=== PATIENT | female | born 1995 | race Two or more races ===

== ENCOUNTER → 2020-09-05 09:53 | Outpatient (BNVA) | payer MEDICAID, SELFPAY | PROVIDERS: Visit Provider Advanced Practice Midwife | DX: Z76.89 Persons encountering health services in other specified circumstances (principal) | CPT/HCPCS: 99212 ==

== ENCOUNTER 2020-09-09 10:49 | Outpatient (REF) | payer MEDICAID, SELFPAY ==
[2020-09-09 11:29] LABS: MANUAL DIFF FLAG NO
[2020-09-09 11:41] LABS: Basophils Percent Auto 0.1 % (0-2); Eosinophils Absolute Auto 0.1 X10*3/uL (0.0-0.4); Eosinophils Percent Auto 0.4 % (0-4); Hemoglobin 10.7 g/dl (12.0-16.0); Imm Gran Abs Auto 0.09 X10*3/uL (0.00-0.03); Imm Gran Pct Auto 0.6 % (0.0-0.4); Lymphocytes Absolute Auto 2.5 X10*3/uL (1.2-4.9); Lymphocytes Percent Auto 17.6 % (20-40); Mean Corpuscular HGB Conc 33.4 g/dl (31.0-35.0); Mean Corpuscular Hemoglobin 30.7 pg (27.0-33.0); Mean Corpuscular Volume 91.7 fL (80-98); Mean Platelet Volume 9.7 fL (9.4-12.3); Monocytes Absolute Auto 0.8 X10*3/uL (0.1-1.2); Monocytes Percent Auto 5.5 % (2-11); Neutrophils Absolute Auto 10.8 X10*3/uL (2.0-8.3); Neutrophils Percent Auto 75.8 % (45-73); Platelet Count 238 X10*3/uL (160-400); Red Blood Count 3.49 X10*6/uL (4.20-5.50); Red Cell Distribution Width 12.6 % (11.0-16.0); White Blood Count 14.2 X10*3/uL (4.8-10.8)
[2020-09-09 12:10] LABS: Hepatitis B Surface Antigen Negative (Negative)
[2020-09-09 12:12] LABS: Syphilis Screen Nonreactive (Nonreactive)
[2020-09-09 12:25] LABS: HIV AB/AG Nonreactive (Nonreactive); HIV Num 1 0.16 S/CO (0.00-0.99); ~HepC Num1 0.26 S/CO (0.00-0.79); ~Hepatitis C Antibody Nonreactive (Nonreactive)
[2020-09-09 12:27] LABS: Amphetamine Screen Urine Not Detected (Not Detect); Barbiturates, Urine Not Detected (Not Detect); Benzodiazepines Screen Urine Not Detected (Not Detect); Cannabinoid Screen Urine Not Detected (Not Detect); Cocaine Screen Urine Not Detected (Not Detect); Opiate Screen Urine Not Detected (Not Detect); Phencyclidine Screen Urine Not Detected (Not Detect)
[2020-09-10 09:12] LABS: Rubella IgG Antibody 9.63 Index
== END 2020-09-09 10:50 | disposition home or self-care (01) ==
LOC: HO.LAB 10:49
PROVIDERS: PCP Family Medicine; Visit Provider Advanced Practice Midwife
DX: Z34.90 Encounter for supervision of normal pregnancy, unspecified, unspecified trimester (principal)
CPT/HCPCS: 80307; 85025; 86762; 86780; 86787; 86803; 86850; 86900; 86901; 87086; 87340; 87389

== ENCOUNTER 2020-09-10 12:43 | Outpatient (REF) | payer MEDICAID, SELFPAY ==
[2020-09-10 15:04] LABS: Glucose 1 Hour PP 50gm Dose 177 mg/dL (60-140)
[2020-09-11 12:28] LABS: BV Int Neg Control Negative (Negative); BV Int Pos Control Positive (Positive)
[2020-09-12 18:52] LABS: C. trachomatis RNA TMA NOT DETECTED (NOT DETECTED); N. gonorrhoeae RNA TMA NOT DETECTED (NOT DETECTED)
== END 2020-09-10 12:44 | disposition home or self-care (01) ==
LOC: HO.LAB 12:43
PROVIDERS: Advanced Practice Midwife; PCP Family Medicine; Visit Provider Advanced Practice Midwife
DX: O26.892 Other specified pregnancy related conditions, second trimester (principal); O99.342 Other mental disorders complicating pregnancy, second trimester; N89.8 Other specified noninflammatory disorders of vagina; F41.8 Other specified anxiety disorders; Z13.31 Encounter for screening for depression
CPT/HCPCS: 36415; 81003; 87086; 87088; 87186; 87480; 87491; 87510; 87591; 87660; 99212

== ENCOUNTER 2020-09-13 10:06 | Outpatient (REF) | payer MEDICAID, SELFPAY ==
--- NOTE | 2020-09-13 10:12 | US_ITS ---
EXAMINATION: US OBSTETRICAL CLINICAL INFORMATION: 24-year-old at the 24.1 weeks gestation Suspected anomaly COMPARISON: 07/28/2019 TECHNIQUE: Real-time transabdominal ultrasound was performed using C1-5 megahertz transducer. FINDINGS: A single, active, fetus is seen in vertex presentation. The placenta is posterior without previa, and the amniotic fluid volume is wnl. MEASUREMENTS: 1. Biparietal Diameter: 5.2 cm; 21.5 wks 2. Occipital Frontal Diameter: 6.8 cm 3. Head Circumference: 20.0 cm; 22.2 wks 4. Abdominal Circumference: 16.5 cm; 21.5 wks 5. Femur Length: 4.0 cm; 23.1 wks 6. Humerus Length: 3.8 cm; 23.3 wks 7. Tibia Length: 3.7 cm; 23.6 wks 8. Ulna Length: 3.5 cm; 23.3 wks 9. Lateral ventricle: 0.8 cm 10. Cerebellum: 2.26 cm; 22.4 wks 11. Cisterna Magna: 0.52 cm 12. Nuchal Fold: 5.0 mm 13. Heart Rate: 144 beats per minute Rt ovary: normal Lt ovary: normal Cervical length 4.1 cm on T/A. GESTATIONAL AGE: 1. Established GA: 24.1 wks 2. GA from [facility]: 22.2 wks ESTIMATED DATE OF DELIVERY: 1. Established AGUILA: 01/02/2021 2. AGUILA from [facility]: 01/15/2021 ANATOMY: The visualized anatomy includes but not limited to: 1. Cranium: Normal 2. Intracranial anatomy: cavum septum pellucidi, lateral ventricles, choroid plexus, cerebellum, posterior fossa, third and fourth ventricles. 3. face: orbits, lip/palate, profile, nasal bone 4. Heart: four-chamber view of the heart, ventricular septum, foramen ovale, pulmonary vein, left and right outflow tracts, three-vessel view, 3 vessel trachea view, aortic and ductal arches, situs.. 5. Diaphragm: Normal 6. Abdominal wall: Normal 7. Cord Insertion: Normal 8. Spine: Cervical, thoracic, lumbar, sacral. 9. Stomach: Normal size and shape 10. Right Kidney: Normal 11. Left Kidney: Normal 12. 3 vessel cord: Normal 13. Upper extremity: Open hands, fifth digit. 14. Lower extremity: Tibia, fibula, bilateral feet. 15. Bladder: Normal 16. Genitalia: Female, patient aware US/US OB /maternal detail IMPRESSION: 1. Single, living, intrauterine with appropriate biometry. 2. Normal survey DISCUSSION: The biometry is 13 days less than her stated due date. She informs me that her LMP was irregular. This is her first ultrasound in this . I recommended that we adjust her AGUILA to 01/15/2021 based on today's examination. The growth pattern should be monitored throughout the . I reviewed today's ultrasound findings. We discussed the limitations of ultrasound in diagnosing aneuploidy and other congenital abnormalities. I reviewed the differences between screening test and diagnostic test. Amniocentesis was discussed and declined. She was informed that the baseline incidence of congenital abnormalities is approximately 3-5%. Not all these conditions are diagnosable in utero. RECOMMENDATIONS: 1. Follow-up in 4 weeks for an interval growth evaluation (not scheduled). Thank you for allowing me to participate in her care. Total time 30 minutes. (3,20,7)
== END 2020-09-13 10:07 | disposition home or self-care (01) ==
LOC: HO.US 10:06
PROVIDERS: PCP Family Medicine; Visit Provider Advanced Practice Midwife
DX: O35.9XX0 Maternal care for (suspected) fetal abnormality and damage, unspecified, not applicable or unspecified (principal); Z3A.24 24 weeks gestation of pregnancy
CPT/HCPCS: 76811

== ENCOUNTER 2020-09-17 10:40 | Outpatient (REF) | payer MEDICAID, SELFPAY ==
[2020-09-17 12:09] LABS: Glucose Fasting 75 mg/dL (60-99)
[2020-09-17 13:46] LABS: Glucose 1 Hour 174 mg/dL
[2020-09-17 14:19] LABS: Glucose 2 Hour 172 mg/dL
[2020-09-17 15:04] LABS: Glucose 3 Hour 156 mg/dL
[2020-09-19 00:27] LABS: C. trachomatis RNA TMA NOT DETECTED (NOT DETECTED); N. gonorrhoeae RNA TMA NOT DETECTED (NOT DETECTED)
== END 2020-09-17 10:41 | disposition home or self-care (01) ==
LOC: HO.LAB 10:40
PROVIDERS: Advanced Practice Midwife; PCP Family Medicine; Visit Provider Advanced Practice Midwife
DX: R73.09 Other abnormal glucose (principal); R30.0 Dysuria
CPT/HCPCS: 36415; 82951; 87086; 87491; 87591

== ENCOUNTER → 2020-09-18 10:39 | Outpatient (BNVA) | payer MEDICAID, SELFPAY | PROVIDERS: Visit Provider Advanced Practice Midwife | DX: O09.899 Supervision of other high risk pregnancies, unspecified trimester (principal); O24.419 Gestational diabetes mellitus in pregnancy, unspecified control | CPT/HCPCS: 81003; 99212 ==

== ENCOUNTER → 2020-09-30 11:37 | Outpatient (BNVA) | payer MEDICAID, SELFPAY | PROVIDERS: Visit Provider Obstetrics & Gynecology | DX: O09.92 Supervision of high risk pregnancy, unspecified, second trimester (principal) | CPT/HCPCS: 81003; 99212 ==

== ENCOUNTER 2020-10-11 11:43 | Outpatient (REF) | payer MEDICAID, SELFPAY ==
--- NOTE | ~2020-10-11 | US_ITS ---
EXAMINATION: OBSTETRICAL ULTRASOUND, Follow up HISTORY: 25-year-old at 26.2 weeks of gestation Insufficient care Size date discrepancy GDM A1 COMPARISON: 09/13/2020 TECHNIQUE: Real time transabdominal imaging with color and M-mode Doppler. PRESENTATION: Vertex PLACENTA LOCATION: Posterior without previa AMNIOTIC FLUID: ANTONELLA 11.4 cm MEASUREMENTS: 1. Biparietal Diameter: 6.6 cm; 26.5 wks 2. Head Circumference: 23.94 cm; 26.1 wks 3. Abdominal Circumference: 22.3 cm; 26.6 wks 4. Femur Length: 5.0 cm; 27.1 wks 5. Heart Rate: 146 beats per minute WEIGHT: EFW: 983 grams (2 lbs 3 oz) -- 60 %. While the left cerebral ventricle measures 0.9cm, which is within normal range, it appears prominent. Intracranial anatomy is within normal limits. Four-chamber view, stomach, kidneys, urinary bladder are within normal limits. GESTATIONAL AGE: 1. Established GA: 26.2 wks 2. GA from AUA: 26.5 wks ESTIMATED DATE OF DELIVERY: 1. Established AGUILA: 01/16/2020 2. AGUILA from AUA: 01/12/2021 US/US OB follow up IMPRESSION: 1. Single active fetus is in vertex presentation 2. Size equals dates. The best AGUILA appears to be 01/15/2021 based on her ultrasound on September 13. The interval growth is appropriate since her prior exam. 3. Normal amniotic fluid index 4. Left cerebral ventricle is near the upper end of normal She was diagnosed with gestational diabetes last week. She is currently on diet. She reports that her fasting glucose values are in the 80s. She has occasional postprandial values that are as high as 150. She is still working on her GDM diet. The discussed the possibility of needing either metformin or insulin. I also discussed the increased incidence of a macrosomia as well as hypoglycemia in women whose serum glucose levels are elevated in . I reviewed the clinical significance of borderline cerebral ventriculomegaly. I reassured her that the measurement is still within normal range. However if it exceeds 1.0 cm, will be referred to [facility] for pediatric urology consultation. Majority of the babies with borderline ventriculomegaly are expected to have normal outcome. Thank you very much for this referral. A 3-week f/u has been scheduled. Total time: 30 min (7,15,8).
== END 2020-10-11 11:44 | disposition home or self-care (01) ==
LOC: HO.US 11:43
PROVIDERS: Visit Provider Advanced Practice Midwife
DX: O26.841 Uterine size-date discrepancy, first trimester (principal)
CPT/HCPCS: 76816

== ENCOUNTER 2020-10-17 12:40 | Outpatient (REF) | payer MEDICAID, SELFPAY | END 2020-10-17 12:41 | disposition home or self-care (01) | LOC: HO.LAB 12:40 | PROVIDERS: PCP Family Medicine; Referring Provider Obstetrics & Gynecology; Visit Provider Obstetrics & Gynecology | DX: O23.40 Unspecified infection of urinary tract in pregnancy, unspecified trimester (principal); O99.342 Other mental disorders complicating pregnancy, second trimester; Z3A.27 27 weeks gestation of pregnancy | CPT/HCPCS: 87086; 99212 ==

== ENCOUNTER 2020-10-21 12:18 | Outpatient (REF) | payer MEDICAID, SELFPAY ==
[2020-10-21 13:41] LABS: MANUAL DIFF FLAG NO
[2020-10-21 13:59] LABS: Basophils Percent Auto 0.2 % (0-2); Eosinophils Absolute Auto 0.1 X10*3/uL (0.0-0.4); Eosinophils Percent Auto 0.4 % (0-4); Hematocrit 31.4 % (37-47); Hemoglobin 10.7 g/dl (12.0-16.0); Imm Gran Abs Auto 0.09 X10*3/uL (0.00-0.03); Imm Gran Pct Auto 0.7 % (0.0-0.4); Lymphocytes Absolute Auto 2.5 X10*3/uL (1.2-4.9); Lymphocytes Percent Auto 18.9 % (20-40); Mean Corpuscular HGB Conc 34.1 g/dl (31.0-35.0); Mean Corpuscular Hemoglobin 31.1 pg (27.0-33.0); Mean Corpuscular Volume 91.3 fL (80-98); Mean Platelet Volume 10.4 fL (9.4-12.3); Monocytes Absolute Auto 1.1 X10*3/uL (0.1-1.2); Monocytes Percent Auto 8.2 % (2-11); Neutrophils Absolute Auto 9.6 X10*3/uL (2.0-8.3); Neutrophils Percent Auto 71.6 % (45-73); Platelet Count 274 X10*3/uL (160-400); Red Blood Count 3.44 X10*6/uL (4.20-5.50); Red Cell Distribution Width 12.5 % (11.0-16.0); White Blood Count 13.4 X10*3/uL (4.8-10.8)
[2020-10-21 14:53] LABS: Alanine Aminotransferase 69 U/L (0-31); Albumin Level 3.5 g/dL (3.5-5.0); Alkaline Phosphatase 112 U/L (39-117); Aspartate Amino Transferase 42 U/L (5-31); Bilirubin Direct < 0.2 mg/dL (0.0-0.5); Bilirubin Total 0.2 mg/dL (0.0-1.0); Total Protein 6.7 g/dL (6.5-8.0)
[2020-10-23 07:30] LABS: Syphilis Screen Nonreactive (Nonreactive)
[2020-10-25 15:42] LABS: Chendeoxycholic Acid 2.3 umol/L (< OR = 3.9); Cholic Acid 2.3 umol/L (< OR = 2.8)
== END 2020-10-21 12:19 | disposition home or self-care (01) ==
LOC: HO.LAB 12:18
PROVIDERS: PCP Family Medicine; Visit Provider Obstetrics & Gynecology
DX: O99.719 Diseases of the skin and subcutaneous tissue complicating pregnancy, unspecified trimester (principal); L29.9 Pruritus, unspecified; O99.342 Other mental disorders complicating pregnancy, second trimester; F41.8 Other specified anxiety disorders; O10.912 Unspecified pre-existing hypertension complicating pregnancy, second trimester; O26.892 Other specified pregnancy related conditions, second trimester; O24.419 Gestational diabetes mellitus in pregnancy, unspecified control; Z3A.27 27 weeks gestation of pregnancy
CPT/HCPCS: 36415; 80076; 82542; 85025; 86780; 99212

== ENCOUNTER → 2020-10-22 13:23 | Outpatient (BNVA) | payer MEDICAID, SELFPAY | PROVIDERS: PCP Family Medicine; Visit Provider Advanced Practice Midwife | DX: Z34.92 Encounter for supervision of normal pregnancy, unspecified, second trimester (principal) | CPT/HCPCS: 59025; 81003; 99212 ==

== ENCOUNTER → 2020-10-24 16:02 | Outpatient (BNVA) | payer MEDICAID, SELFPAY | PROVIDERS: PCP Family Medicine; Visit Provider Obstetrics & Gynecology | DX: O26.619 Liver and biliary tract disorders in pregnancy, unspecified trimester (principal); O24.419 Gestational diabetes mellitus in pregnancy, unspecified control; K83.1 Obstruction of bile duct | CPT/HCPCS: 99212 ==

== ENCOUNTER 2020-10-25 10:27 | Outpatient (REF) | payer MEDICAID, SELFPAY ==
--- NOTE | ~2020-10-25 | US_ITS ---
EXAMINATION: OBSTETRICAL ULTRASOUND, Follow up HISTORY: 25-year-old at 30.1 weeks of gestation Elevated LFTs Gestational diabetes Insufficient care High BMI COMPARISON: 10/11/2020 TECHNIQUE: Real time transabdominal imaging with color and M-mode Doppler. PRESENTATION: Vertex PLACENTA LOCATION: Posterior without previa AMNIOTIC FLUID: ANTONELLA 14.2 cm Biometry was not repeated since there were done on 10/11/2020. Left renal pelvis measured 0.7 cm. There is no hydroureter. This can be within normal range at this gestational age. BIOPHYSICAL PROFILE: Motion: 2 Tone: 2 Breathin Amniotic Fluid: 2 Total score: 8/8 GESTATIONAL AGE: 1. Established GA: 30.1 wks 2. GA from AUA: N/A wks ESTIMATED DATE OF DELIVERY: 1. Established AGUILA: 01/02/2021 2. AGUILA from AUA: N/A US/US OB biophysical profile IMPRESSION: 1. A single active fetus is in vertex presentation 2. BPP: 8/8 3. ANTONELLA 14.2 cm According to the patient, she was evaluated at the [facility] for elevated LFT. She was given the diagnosis of intrahepatic cholestasis of in started on ursodiol 500 mg by mouth twice a day. Reports that her pruritus is improved since starting ursodiol. She has a follow-up the scheduled. I informed her that the depending on her symptoms and progression of the condition, early delivery may be indicated. She was diagnosed with GDM. Is currently on diet. Reports that her fasting glucose this morning was in the 80s. Last night postprandial dinner was 160. That was the highest value since starting on GDM diet. She informs me that she is to meet with that diabetic a counselor about starting insulin. Currently she is scheduled for a follow-up in one week for interval growth evaluation. Thank you very much for this referral. Total time 30 minutes. The time spent was devoted to counseling the patient about the disease and diagnosis, coordinating care including reviewing her records, pertinent lab data and studies, as well as discussing diagnostic evaluation and workup, plan therapeutic interventions and future disposition of care. This includes any additional research needed to obtain further information in formulating the plan of care of this patient. This note was generated with a voice recognition program. Please excuse any errors which may have been overlooked during my review of this note. Sometimes these errors may affect the content or meaning of a given sentence.
== END 2020-10-25 10:28 | disposition home or self-care (01) ==
LOC: HO.US 10:27
PROVIDERS: Visit Provider Obstetrics & Gynecology
DX: O24.419 Gestational diabetes mellitus in pregnancy, unspecified control (principal); O26.893 Other specified pregnancy related conditions, third trimester; R79.89 Other specified abnormal findings of blood chemistry; O09.33 Supervision of pregnancy with insufficient antenatal care, third trimester; Z3A.30 30 weeks gestation of pregnancy
CPT/HCPCS: 76819

== ENCOUNTER 2020-11-01 14:06 | Outpatient (REF) | payer MEDICAID, SELFPAY ==
--- NOTE | ~2020-11-01 | US_ITS ---
EXAMINATION: US OBSTETRICAL (BIOPHYSICAL PROFILE) CLINICAL INFORMATION: 25-year-old at 31.1 weeks of gestation Gestational diabetes on insulin Insufficient care High BMI COMPARISON: 10/25/2020 TECHNIQUE: Biophysical profile is performed over 30 minutes with assessment of breathing, gross body movement, tone, and qualitative amniotic fluid volume. FINDINGS: POSITION: Cephalic PLACENTA: Posterior without the previa AMNIOTIC FLUID INDEX: 14.8 cm CARDIAC ACTIVITY: 149 beats per minute BIOPHYSICAL PROFILE: Motion: 2 Tone: 2 Breathin Amniotic Fluid: 2 The total biophysical score is 8/8 Left lateral ventricle was difficult to evaluate due to position. The measurement today is 8.5 mm which is within normal limits. The right ventricle was also within normal limits. US/US OB follow up IMPRESSION: 1. Single intrauterine gestation in vertex position. 2. Reassuring BPP and ANTONELLA She is currently on no regular insulin 5 units free lunch. Reports that her glycemic control is within target range. States that this morning her fasting was in the high 90s. She is aware of the target of glucose levels as well as the clinical consequences from his sufficiently controlled maternal serum glucose in . She was given ursodiol for intrahepatic cholestasis of . States that her symptoms are improving. Unsure if she has follow-up scheduled at the [facility]. She is to continue weekly testing and interval growth evaluation approximately every 3 weeks. I also informed her that if she has follow-up visits scheduled at the [facility], she should keep those appointments instead of the ones scheduled with me. If her fasting continues to be above the 95, suggest adding 10 units of NPH daily at bedtime. Thank you for allowing me to participate in her care. Total time 30 minutes. The time spent was devoted to counseling the patient about the disease and diagnosis, coordinating care including reviewing her records, pertinent lab data and studies, as well as discussing diagnostic evaluation and workup, plan therapeutic interventions and future disposition of care. This includes any additional research needed to obtain further information in formulating the plan of care of this patient. This note was generated with a voice recognition program. Please excuse any errors which may have been overlooked during my review of this note. Sometimes these errors may affect the content or meaning of a given sentence.
== END 2020-11-01 14:07 | disposition home or self-care (01) ==
LOC: HO.US 14:06
PROVIDERS: Visit Provider Advanced Practice Midwife
DX: Z36.3 Encounter for antenatal screening for malformations (principal); O24.414 Gestational diabetes mellitus in pregnancy, insulin controlled; O09.33 Supervision of pregnancy with insufficient antenatal care, third trimester; Z3A.31 31 weeks gestation of pregnancy
CPT/HCPCS: 76816

== ENCOUNTER 2020-11-08 13:01 | Outpatient (REF) | payer MEDICAID, SELFPAY ==
--- NOTE | ~2020-11-08 | US_ITS ---
EXAMINATION: OBSTETRICAL ULTRASOUND, Follow up HISTORY: 25-year-old at 32.1 weeks gestation Gestational diabetes on insulin Intrahepatic cholestasis of High BMI Insufficient care COMPARISON: 11/01/2020 TECHNIQUE: Real time transabdominal imaging with color and M-mode Doppler. PRESENTATION: Breech PLACENTA LOCATION: Posterior without previa AMNIOTIC FLUID: ANTONELLA 15.9 cm MEASUREMENTS: 1. Biparietal Diameter: 7.9 cm; 31.5 wks 2. Head Circumference: 29 cm; 31.6 wks 3. Abdominal Circumference: 27 cm; 21.0 wks 4. Femur Length: 6.2 cm; 2. wks 5. Heart Rate: 156 beats per minute WEIGHT: EFW: 1765 grams (3 lbs 14 oz) -- 19 %. BIOPHYSICAL PROFILE: Motion: 2 Tone: 2 Breathin Amniotic Fluid: 2 Total score: 8/8 GESTATIONAL AGE: 1. Established GA: 32.1 wks 2. GA from A: 31.5 wks ESTIMATED DATE OF DELIVERY: 1. Established AGUILA: 01/02/2021 2. AGUILA from A: 01/05/2021 US/ OB follow up IMPRESSION: 1. Size equals dates, EFW corresponds to 19th percentile. Compared to the prior exam, there has been less than expected interval growth. 2. Reassuring biophysical profile 3. Normal amniotic fluid volume The patient reports that she is now taking 5 units of regular before breakfast, 5 units before lunch and 5 units before dinner. States that her fasting this morning was 69. Majority of her glucose values are within normal range but did not bring in her glucose log. She is being followed at the [facility] for her gestational diabetes. In addition she is taking ursodiol 300 mg by mouth twice a day for intrahepatic cholestasis of . States that her pruritus persists but better than before the minutes. She is unclear if she has a OB follow-up planned at the [facility]. We discussed the limitations of ultrasound and estimating weights. On today's evaluation, there was a suggestion of less than expected interval growth compared to the EFW obtained on . I recommended that she continue weekly monitoring and schedule a follow-up appointment at the [facility]. Given the risk factors it is likely that she will deliver at the [facility]. Thank you very much for this referral. Total time 30 minutes. The time spent was devoted to counseling the patient about the disease and diagnosis, coordinating care including reviewing her records, pertinent lab data and studies, as well as discussing diagnostic evaluation and workup, plan therapeutic interventions and future disposition of care. This includes any additional research needed to obtain further information in formulating the plan of care of this patient. This note was generated with a voice recognition program. Please excuse any errors which may have been overlooked during my review of this note. Sometimes these errors may affect the content or meaning of a given sentence.
== END 2020-11-08 13:02 | disposition home or self-care (01) ==
LOC: HO.US 13:01
PROVIDERS: Visit Provider Advanced Practice Midwife
DX: O26.841 Uterine size-date discrepancy, first trimester (principal); O24.419 Gestational diabetes mellitus in pregnancy, unspecified control
CPT/HCPCS: 76816

== ENCOUNTER 2020-11-15 14:58 | Outpatient (REF) | payer MEDICAID, SELFPAY ==
--- NOTE | ~2020-11-15 | US_ITS ---
EXAMINATION: US OBSTETRICAL (BIOPHYSICAL PROFILE) CLINICAL INFORMATION: 25-year-old at 33.1 weeks of gestation Gestational diabetes on insulin COMPARISON: 08/30/2020 TECHNIQUE: Biophysical profile is performed over 30 minutes with assessment of breathing, gross body movement, tone, and qualitative amniotic fluid volume. FINDINGS: POSITION: Cephalic PLACENTA: Posterior, without previa AMNIOTIC FLUID INDEX: 19.98 cm CARDIAC ACTIVITY: 158 beats per minute BIOPHYSICAL PROFILE: Motion: 2 Tone: 2 Breathin Amniotic Fluid: 2 The total biophysical score is 8/8 US/US OB biophysical profile IMPRESSION: 1. Single intrauterine gestation in vertex position. 2. Reassuring BPP and ANTONELLA Is currently on regular insulin 3 units before breakfast, 5 units before lunch and dinner. Reports that her fasting glucose values have gone down as well as in the 60s. However she is not symptomatic. Postprandial values are within normal limits with pre meal regular insulin. I reviewed today's findings and gave her reassurance. Advised her to try light snack after dinner before bedtime if her fasting values continue to be in the 60s. Thank you for allowing me to participate in her care. Total time 30 minutes. The time spent was devoted to counseling the patient about the disease and diagnosis, coordinating care including reviewing her records, pertinent lab data and studies, as well as discussing diagnostic evaluation and workup, plan therapeutic interventions and future disposition of care. This includes any additional research needed to obtain further information in formulating the plan of care of this patient. This note was generated with a voice recognition program. Please excuse any errors which may have been overlooked during my review of this note. Sometimes these errors may affect the content or meaning of a given sentence.
== END 2020-11-15 14:59 | disposition home or self-care (01) ==
LOC: HO.US 14:58
PROVIDERS: Visit Provider Advanced Practice Midwife
DX: O24.414 Gestational diabetes mellitus in pregnancy, insulin controlled (principal); Z3A.33 33 weeks gestation of pregnancy
CPT/HCPCS: 76819

== ENCOUNTER → 2020-11-19 15:50 | Outpatient (BNVA) | payer MEDICAID, SELFPAY | PROVIDERS: PCP Family Medicine; Visit Provider Obstetrics & Gynecology | DX: O24.419 Gestational diabetes mellitus in pregnancy, unspecified control (principal); O26.619 Liver and biliary tract disorders in pregnancy, unspecified trimester; K83.1 Obstruction of bile duct; Z3A.31 31 weeks gestation of pregnancy | CPT/HCPCS: 59025; 99212 ==

== ENCOUNTER 2020-11-22 14:03 | Outpatient (REF) | payer MEDICAID, SELFPAY ==
--- NOTE | ~2020-11-22 | US_ITS ---
EXAMINATION: US OBSTETRICAL (BIOPHYSICAL PROFILE) CLINICAL INFORMATION: 25-year-old at the 34.1 weeks of gestation Gestational diabetes on diet COMPARISON: 11/15/2020 TECHNIQUE: Biophysical profile is performed over 30 minutes with assessment of breathing, gross body movement, tone, and qualitative amniotic fluid volume. FINDINGS: POSITION: Cephalic PLACENTA: Posterior without previa AMNIOTIC FLUID INDEX: 14.8 cm CARDIAC ACTIVITY: 147 beats per minute BIOPHYSICAL PROFILE: Motion: 2 Tone: 2 Breathin Amniotic Fluid: 2 The total biophysical score is 8/8 US/US OB biophysical profile IMPRESSION: 1. Single intrauterine gestation in vertex position. 2. Reassuring BPP and ANTONELLA Thank you for allowing me to participate in her care. This note was generated with a voice recognition program. Please excuse any errors which may have been overlooked during my review of this note. Sometimes these errors may affect the content or meaning of a given sentence.
[2020-11-22 15:11] LABS: Alanine Aminotransferase 69 U/L (0-31); Albumin Level 3.2 g/dL (3.5-5.0); Alkaline Phosphatase 140 U/L (39-117); Aspartate Amino Transferase 44 U/L (5-31); Bilirubin Direct < 0.2 mg/dL (0.0-0.5); Bilirubin Total 0.2 mg/dL (0.0-1.0); Total Protein 6.3 g/dL (6.5-8.0)
== END 2020-11-22 14:04 | disposition home or self-care (01) ==
LOC: HO.US 14:03
PROVIDERS: Absent Provider Obstetrics & Gynecology; PCP Family Medicine; Visit Provider Advanced Practice Midwife
DX: O24.419 Gestational diabetes mellitus in pregnancy, unspecified control (principal); O26.619 Liver and biliary tract disorders in pregnancy, unspecified trimester; K83.1 Obstruction of bile duct
CPT/HCPCS: 36415; 76819; 80076

== ENCOUNTER 2023-05-13 09:32 | Outpatient (REF) | payer MEDICAID, SELFPAY ==
[2023-05-13 11:32] LABS: MANUAL DIFF FLAG NO
[2023-05-13 11:54] LABS: Basophils Percent Auto 0.3 % (0-2); Eosinophils Percent Auto 0.3 % (0-4); Hematocrit 36.2 % (37.0-47.0); Imm Gran Abs Auto 0.07 X10*3/uL (0.00-0.03); Imm Gran Pct Auto 0.6 % (0.0-0.4); Lymphocytes Absolute Auto 2.6 X10*3/uL (1.2-4.9); Lymphocytes Percent Auto 22.7 % (20-40); Mean Corpuscular HGB Conc 33.1 g/dl (31.0-35.0); Mean Corpuscular Hemoglobin 29.1 pg (27.0-33.0); Mean Corpuscular Volume 87.7 fL (80.0-98.0); Mean Platelet Volume 11.2 fL (9.4-12.3); Monocytes Absolute Auto 0.7 X10*3/uL (0.1-1.2); Monocytes Percent Auto 5.8 % (2-11); Neutrophils Absolute Auto 8.1 x10*3/uL (2.0-8.3); Neutrophils Percent Auto 70.3 % (45-73); Platelet Count 248 X10*3/uL (160-400); Red Blood Count 4.13 X10*6/uL (4.20-5.50); Red Cell Distribution Width 13.3 % (11.0-16.0); White Blood Count 11.5 X10*3/uL (4.8-10.8)
[2023-05-13 12:15] LABS: Estimated Average Glucose 108 mg/dL; Hemoglobin A1c % 5.4 % (<6.0)
[2023-05-13 12:23] LABS: Anion Gap 13 (12-20); Blood Urea Nitrogen 11 mg/dL (9-16); Calcium 9.5 mg/dL (8.4-10.2); Carbon Dioxide 23 mmol/L (22-29); Chloride 103 mmol/L (96-108); Cholesterol 124 mg/dL (<200); Estimated Glomerular Filt Rate > 60; Glucose Random 87 mg/dL (60-115); HDL Cholesterol 37 mg/dL (>40); LDL Cholesterol Calculated 72 mg/dL (<100); Potassium 3.8 mmol/L (3.3-5.1); Sodium 135 mmol/L (135-145); Triglycerides 77 mg/dL (<150)
[2023-05-13 12:44] LABS: TSH reflex Free T4 0.85 uIU/mL (0.32-4.0)
[2023-05-18 17:09] LABS: VITAMIN D (1,25 OH) D3 52 pg/mL; Vit D (1,25-Dihydroxy) Total 52 pg/mL (18-72); Vitamin D (1,25 OH) D2 <8 pg/mL
== END 2023-05-13 09:33 | disposition home or self-care (01) ==
LOC: HO.HHCL 09:32
PROVIDERS: Visit Provider Family Medicine
DX: E66.9 Obesity, unspecified (principal); Z68.33 Body mass index [BMI] 33.0-33.9, adult; E28.2 Polycystic ovarian syndrome; N97.9 Female infertility, unspecified
CPT/HCPCS: 36415; 80048; 80061; 82652; 83036; 84443; 85025

== ENCOUNTER 2024-06-09 11:45 | Outpatient (REF) | payer MEDICAID, SELFPAY ==
[2024-06-09 13:46] LABS: Estimated Average Glucose 114 mg/dL; Hemoglobin A1C 110.0142 umol/L; Hemoglobin A1c % 5.6 % (<6.0); Total Hemoglobin (HGBA1C) 2920.2469 umol/L
[2024-06-09 14:10] LABS: Alanine Aminotransferase 28 U/L (0-31); Albumin Level 4.3 g/dL (3.5-5.0); Alkaline Phosphatase 76 U/L (39-117); Anion Gap 10 (12-20); Aspartate Amino Transferase 26 U/L (5-31); Bilirubin Direct 0.1 mg/dL (0.0-0.5); Bilirubin Total 0.3 mg/dL (0.0-1.0); Blood Urea Nitrogen 11 mg/dL (9-16); Calcium 9.5 mg/dL (8.4-10.2); Carbon Dioxide 24 mmol/L (22-29); Chloride 106 mmol/L (96-108); Cholesterol 121 mg/dL (<200); Estimated Glomerular Filt Rate > 60; Glucose Random 87 mg/dL (60-115); HDL Cholesterol 35 mg/dL (>40); LDL Cholesterol Calculated 70 mg/dL (<100); Potassium 4.2 mmol/L (3.3-5.1); Sodium 136 mmol/L (135-145); Total Protein 7.7 g/dL (6.5-8.0); Triglycerides 83 mg/dL (<150)
[2024-06-09 14:11] LABS: TSH reflex Free T4 0.19 uIU/mL (0.32-4.0)
[2024-06-09 15:09] LABS: Free T4 (Free Thyroxine) 1.03 ng/dL (0.71-1.85)
== END 2024-06-09 11:46 | disposition home or self-care (01) ==
LOC: HO.HHCL 11:45
PROVIDERS: Visit Provider Family Medicine
DX: E66.811 Obesity, class 1 (principal); Z68.33 Body mass index [BMI] 33.0-33.9, adult
CPT/HCPCS: 36415; 80048; 80061; 80076; 83036; 84439; 84443

== ENCOUNTER 2024-06-16 10:58 | Outpatient (REF) | payer MEDICAID, SELFPAY ==
[2024-06-16 13:50] LABS: TSH reflex Free T4 0.66 uIU/mL (0.32-4.0)
== END 2024-06-16 10:59 | disposition home or self-care (01) ==
LOC: HO.HHCL 10:58
PROVIDERS: Visit Provider Family Medicine
DX: R79.89 Other specified abnormal findings of blood chemistry (principal)
CPT/HCPCS: 36415; 84443

== ENCOUNTER 2024-12-15 10:15 | Outpatient (REF) | payer MEDICAID, SELFPAY ==
[2024-12-15 11:29] LABS: Hematocrit 37.1 % (37.0-47.0); Hemoglobin 12.1 g/dl (12.0-16.0); Mean Corpuscular HGB Conc 32.6 g/dl (31.0-35.0); Mean Corpuscular Hemoglobin 28.1 pg (27.0-33.0); Mean Corpuscular Volume 86.1 fL (80.0-98.0); Mean Platelet Volume 9.9 fL (9.4-12.3); Platelet Count 280 X10*3/uL (160-400); Red Blood Count 4.31 X10*6/uL (4.20-5.50); Red Cell Distribution Width 13.8 % (11.0-16.0); White Blood Count 6.5 X10*3/uL (4.8-10.8)
[2024-12-15 12:00] LABS: TSH reflex Free T4 0.93 uIU/mL (0.32-4.0)
== END 2024-12-15 10:16 | disposition home or self-care (01) ==
LOC: HO.HHCL 10:15
PROVIDERS: Visit Provider Family Medicine
DX: I10 Essential (primary) hypertension (principal); R00.0 Tachycardia, unspecified
CPT/HCPCS: 36415; 84443; 85027

== ENCOUNTER 2025-01-15 09:22 | Outpatient (REF) | payer MEDICAID, SELFPAY ==
[2025-01-17 23:33] LABS: TS Negative Control Passed; TS Panel A 1; TS Panel B 1; TS Positive Control Passed; TSpotTB Negative (Negative)
== END 2025-01-15 09:23 | disposition home or self-care (01) ==
LOC: HO.HHCL 09:22
PROVIDERS: Visit Provider Family Medicine
DX: Z11.1 Encounter for screening for respiratory tuberculosis (principal)
CPT/HCPCS: 36415; 86481

== ENCOUNTER 2025-08-28 15:52 | Outpatient (REF) | payer MEDICAID, SELFPAY ==
--- OUTSIDE RECORDS SUMMARY | 2025-08-28 18:57 | XMS_ITS | Encounter Summary ---
Author Organization [employer] Address [address] [facility] [address]t [place] [address] Care Team Providers Care Certified Medical Biller Name Role Phone Kaitlyn Al MD Primary Care Provider [phone]- [phone] Reason for Visit * Reason Onset Date Comments Appointment Request 01/18/2024 Encounter Details Date Type Department Care Team ([facility] st Contact Info) Description 01/18/2024 Telephone [facility] MED[facility]INE [address] [place], [place] [phone] Kaitlyn Al MD [address] [place], [place] [phone] Appointment Request Social History Tobacco Use Types Packs/Day Years Used Date Smoking Tobacco: Never Smokeless Tobacco: Never PHQ-2 Answer Date Recorded Patient Health Questionnaire-2 Score 0 09/07/2022 Housing Stability Answer Date Recorded What is your housing situation today? I have housing today, but I am worried about losing housing in the future 06/14/[address] you li ve. Do you have problems with any of the following? None of the above 06/14/2023 Food Insecurity Answer Date Recorded Within the past 12 months, y ou worried that your food would run out before you got money to buy more: Never True 06/14/2023 Within the past 12 months,th e food you bought just didn't last and you didn't have enough money to get more: Never True Transportation Answer Date Recorded In the past 12 months, has l ack of transportation kept you from medical appts, meetings, work or from getting things needed for daily living? No 06/14/2023 Utilities Answer Date Recorded In the past 12 months, has t he electric, gas, oil or water company threatened to shut off services in your home? No 06/14/2023 Depression Answer Date Recorded Patient Health Questionnaire-2 Score 0 09/07/2022 Comments No Sex and Gender Information Value Date Recorded Sex Assigned at Female 06/29/2022 10:27 AM EDT Legal Sex Female 10:27 AM EDT Gender Identity Female 06/29/2022 10:27 AM EDT Sexual Orientation Choose not to disclose 2021 10:27 AM EDT documented as of this encounter Miscellaneous Notes * Telephone Encounter - Oz Townsend - 01/18/2024 1:44 PM EDT Tc from patient calling to reschedule missed follow-up appt from 12/30 documented in this encounter Plan of Treatment Not on file documented as of this encounter Visit Diagnoses Not on filedocumented in this encounter Care Teams Certified Medical Biller Relationship Specialty Start Date End Date Kaitlyn Al MD [address] [place] [address] PCP - General Family Medicine 05/05/16 documented as of this encounter
--- OUTSIDE RECORDS SUMMARY | 2025-08-28 18:57 | XMS_ITS | Encounter Summary ---
Author Organization [employer] Address [address] [facility] [address] [place] [address] Care Team Providers Care [employer] Salesperson Name Role Phone Kaitlyn Al MD Primary Care Provider [phone]- [phone] Encounter Details Date Type Department Care Team (Late st Contact Info) Description 05/16/2025 Orders Only [facility] [address] [place], [place] [phone] Kaitlyn Al MD [address] [place], [place] [phone] Class 1 obesity due to excess calories without serious comorbidity with body mass index (BMI) of 34.0 to 34.9 in adult Social History Tobacco Use Types Packs/Day Years Used Date Smoking Tobacco: Never Smokeless Tobacco: Never Alcohol Use Standard Drinks/Week Comments Never 0 (1 standard drink = 0.6 oz pur e alcohol) Alcohol Answer Date Recorded Frequency of Alcohol Consumption Not on file 06/07/2024 Average Number of Drinks Not on file 024 Frequency of Binge Drinking Not on file 04/2024 Score 0 06/07/2024 Depression Answer Date Recorded Patient Health Questionnaire-9 Score 0 06/07/2024 Patient Health Questionnaire-9 Score 0 06/07/2024 Last PHQ-9: Questionnaire Data Not on file 1 Housing Stability Answer Date Recorded What is your housing situation today? I have [place] 06/07/[address] you li ve. Do you have problems with any of the following? None of the above 06/07/2024 Food Insecurity Answer Date Recorded Within the past 12 months, y ou worried that your food would run out before you got money to buy more: Never True 06/07/2024 Within the past 12 months,th e food you bought just didn't last and you didn't have enough money to get more: Never True 04/2024 Transportation Answer Date Recorded In the past 12 months, has l ack of transportation kept you from medical appts, meetings, work or from getting things needed for daily living? No 06/07/2024 Utilities Answer Date Recorded In the past 12 months, has t he electric, gas, oil or water company threatened to shut off services in your home? I am not sure 06/07/2024 Depression Answer Date Recorded Patient Health Questionnaire-2 Score 0 06/07/2024 Internet Access Answer Date Recorded Internet Access Q1 Yes 06/07/2024 Internet Access Q2 Not on file 06/07/2024 Comments No Sex and Gender Information Value Date Recorded Sex Assigned at Female 06/29/2022 10:27 AM EDT Legal Sex Female 10:27 AM EDT Gender Identity Female 06/29/2022 10:27 AM EDT Sexual Orientation Choose not to disclose 2021 10:27 AM EDT documented as of this encounter Plan of Treatment Not on file documented as of this encounter Visit Diagnoses Diagnosis Class 1 obesity due to excess calories without serious comorbidity with body mass index (BMI) of 34.0 to 34.9 in adult documented in this encounter Additional Health Concerns Assessment Noted Time PHQ-9 Depression Total Score: 0 06/07/20 24 12:16 PM EDT documented as of this encounter Care Teams [employer] Salesperson Relationship Specialty Start Date End Date Kaitlyn Al MD [address] [place] [id number] PCP - General Family Medicine 05/05/16 documented as of this encounter
--- OUTSIDE RECORDS SUMMARY | 2025-08-28 18:57 | XMS_ITS | Encounter Summary ---
Author Organization [employer] [facility] Address [address] [facility] 7[address] [place] [address] Care Team Providers Care Costume Rental Clerk Name Role Phone Kaitlyn Al MD Primary Care Provider +1- [phone] Encounter Details Date Type Department Care Team (Latest Contact Info) Description 12/10/2021 Abstract C CONVERSIONS Dental, Provider, DDS Social History Tobacco Use Types Packs/Day Years Used Date Smoking Tobacco: Never Assessed Comments Unknown Sex and Gender Information Value Date Recorded [...] on filedocumented in this encounter Care Teams Costume Rental Clerk Relationship Specialty Start Date End Date Kaitlyn Al MD [address] [place] [id number] PCP - General Family Medicine 05/05/16 documented as of this encounter
--- OUTSIDE RECORDS SUMMARY | 2025-08-28 18:57 | XMS_ITS | Encounter Summary ---
Author Organization [employer] Address [address] [facility] 7t [place] [address] Care Team Providers Care [employer] Golden Gate Developer Name Role Phone Kaitlyn Al MD Primary Care Provider +1- [phone] Reason for Visit * Reason Onset Date Comments Med Refill 05/16/2025 Encounter Details Date Type Department Care Team (Late st Contact Info) Description 05/16/2025 Refill [facility] [address] [place], [place] [phone] Kaitlyn Al MD [address] [place] [address] Class 1 obesity due to excess calories [...] documented as of this encounter Care Teams [employer] Golden [employer] Developer Relationship Specialty Start Date End Date Kaitlyn Al MD [address] [place] [id number] PCP - General Family Medicine 05/05/16 documented as of this encounter
--- OUTSIDE RECORDS SUMMARY | 2025-08-28 18:57 | XMS_ITS | Clinical Summary ---
Author Organization [employer] Address [address] [facility] [address] [place] [address] Care Team Providers Care Racing Mechanic Name Role Phone Kaitlyn Zamudio MD Primary Care Provider [phone] Allergies No known active allergies Medications Drospirenone (Slynd) 4 MG tabletIndication s:Oral contraceptive use Take 1 tablet by mouth Once per day. 28 tablet 11 025 Active Zepbound 7.5 MG/0.5ML solution auto-injectorInd ications:Class 1 obesity due to excess calories without serious comorbidity with body mass index (BMI) of 34.0 to 34.9 in adult INJECT ONE PEN (=7.5MG) SUBCUTANEOUSLY ONCE A WEEK DIRECTED 2 mL 08/21/20 25 11:28 AM EST 025 Active multivitamin () 27-0.8 MG tabletIndication s:Positive test Take 1 tablet by mouth Once per day. 90 tablet 1 08/28/20 25 4:18 PM EST 025 Active Tirzepatide-Weig ht Management (Zepbound) 7.5 MG/0.5ML solution auto-injectorInd ications:Class 1 obesity due to excess calories without serious comorbidity with body mass index (BMI) of 34.0 to 34.9 in adult Inject 0.5 mL (7.5 mg) under the skin 1 (one) time per week. 2 mL 025 2024 Discontinued Active Problems Problem Noted Date Diagnosed Date Tachycardia 12/15/2024 Overview (02/19/2025): Tachycardic on exam 12/15/24, hx of elevated TSH in the past. Denies current palpitations. NO acute warning signs. -ordered repeat CBC and TSH 12/15/24 - unremarkable Assessment & Plan (02/20/2025 1:25 PM EDT): Tachycardic on exam 12/15/24, hx of elevated TSH in the past. Denies current palpitations. NO acute warning signs. -ordered repeat CBC and TSH 12/15/24 - unremarkable Resolved 02/19/25 Assessment & Plan (12/15/2024 10:03 AM EDT): Tachycardic on exam 12/15/24, hx of elevated TSH in the past. Denies current palpitations. NO acute warning signs. -ordered repeat CBC and TSH 12/15/24 Primary hypertension 12/15/2024 Overview (02/19/2025): -Blood pressure elevated at 145/83, pt reports elevated BP at home. -Continue lifestyle modifications -ordered CBC and TSH 12/15/24 - unremarkable Assessment & Plan (02/20/2025 1:25 PM EDT): -Blood pressure elevated at 145/83, pt reports elevated BP at home. -Continue lifestyle modifications -ordered CBC and TSH 12/15/24 - unremarkable Assessment & Plan (12/15/2024 10:06 AM EDT): -Blood pressure elevated at 145/83, pt reports elevated BP at home. -Continue lifestyle modifications -ordered CBC and TSH 12/15/24 Atypical squamous cells of u ndetermined significance on cytologic smear of cervix (ASC-US) 12/15/2024 Overview (12/15/2024): 06/16/23 ASCUS with HPV negative. Co-testing in 3 yrs. Oral contraceptive use 05/18/2024 Overview (12/15/2024): OB Hx: -ASCUS, HPV neg pap 05/2023. - 11/2023. Not breast feeding. History of GDM, PIH. Discussed control options. Going to visit AMAB partner in [place] early next month. Used combination oral contraceptive pill previously, but had nausea with it. -LMP 03/20/2024. Not planning in the next year. Last sexually active 10/2023. Reviewed options. Estrogen containing methods contraindicated due to BP, as is progestin injection. Discussed IUDs, implant and progestin only pill as options. She would like to try progestin only pill. -Will start with Drospirenone (Slynd) 4 MG once daily, but if GI symptoms noted, can switch to NET. Side effects and danger signs reviewed. -Pill check in 2-3 months. Has no started OCP yet, discussed starting today, since she is seeing her in 2 weeks. -Start Drospirenone (Slynd) 4 MG once daily, 06/07/24 -doing well 07/07/24 -Started Slynd on 06/07/24, [place] will stop Slynd and start contrave for time being and will re-discuss control options upon husbands return. Assessment & Plan (05/31/2025 11:40 AM EDT): Restart Slynd because she is traveling to see her . Back up x 1 week recommended. Declines other method of control. Accepts condoms. Orders: Drospirenone (Slynd) 4 MG tablet; Take 1 tablet by mouth Once per day. Assessment & Plan (07/07/2024 11:02 AM EST): OB Hx: -ASCUS, HPV neg pap 05/2023. - 11/2023. Not breast feeding. History of GDM, PIH. Discussed control options. Going to visit AMAB partner in [place] early next month. Used combination oral contraceptive pill previously, but had nausea with it. -LMP 03/20/2024. Not planning in the next year. Last sexually active 10/2023. Reviewed options. Estrogen containing methods contraindicated due to BP, as is progestin injection. Discussed IUDs, implant and progestin only pill as options. She would like to try progestin only pill. -Will start with Drospirenone (Slynd) 4 MG once daily, but if GI symptoms noted, can switch to NET. Side effects and danger signs reviewed. -Pill check in 2-3 months. Has no started OCP yet, discussed starting today, since she is seeing her in 2 weeks. -Start Drospirenone (Slynd) 4 MG once daily, 06/07/24 -doing well 07/07/24 Assessment & Plan (06/07/2024 12:21 PM EDT): OB Hx: -ASCUS, HPV neg pap 05/2023. - 11/2023. Not breast feeding. History of GDM, PIH. Discussed control options. Going to visit AMAB partner in [place] early next month. Used combination oral contraceptive pill previously, but had nausea with it. -LMP 03/20/2024. Not planning in the next year. Last sexually active 10/2023. Reviewed options. Estrogen containing methods contraindicated due to BP, as is progestin injection. Discussed IUDs, implant and progestin only pill as options. She would like to try progestin only pill. -Will start with Drospirenone (Slynd) 4 MG once daily, but if GI symptoms noted, can switch to NET. Side effects and danger signs reviewed. -Pill check in 2-3 months. Has no started OCP yet, discussed starting today, since she is seeing her in 2 weeks. -Start Drospirenone (Slynd) 4 MG once daily, 06/07/24 History of pre-eclampsia 05/17/2024 Uses Faroese as primary spoken language 05/17/20 Pruritic urticarial papules and plaques of pregn anaya 06/09/2023 06/09/2023 Recurrent major depressive disorder, in partial remission 06/09/2023 06/09/2023 Positive test 05/12/2023 Overview (05/12/2023): Desired . vitamins started.. Referral to [facility]. Harm reduction discussed. Assessment & Plan (06/09/2023 3:55 PM EDT): Desired . vitamins started.. Referral to [facility]. Harm reduction discussed. Hx gestational diabetes 05/12/2023 Other specified health status 05/10/2023 Overview (06/07/2024): -next physical exam due after 06/07/25 -eye care facilitated by [facility] next appointment 05/25/2023. -dental home is [facility] -health care proxy given and filed 06/07/24 Assessment & Plan (06/07/2024 12:15 PM EDT): -next physical exam due after 06/07/25 -eye care facilitated by [facility] next appointment 05/25/2023. -dental home is [facility] -health care proxy given and filed 06/07/24 Assessment & Plan (06/09/2023 3:55 PM EDT): -next physical exam due after 05/12/2024 -eye care facilitated by [facility] next appointment 05/25/2023. -dental home is [facility] Assessment & Plan (05/12/2023 12:14 PM EDT): -next physical exam due. -eye care facilitated by [facility] next appointment 05/05/2023. -dental home is [facility] History of calculus of gallbladder 09/06/2022 Vitamin D deficiency 09/06/2022 Class 1 obesity due to exces s calories without serious comorbidity with body mass index (BMI) of 34.0 to 34.9 in adult 09/06/2022 Overview (02/19/2025 3:16 PM EDT): Baseline weight 202 02/19/25 BMI Readings from Last 3 Encounters: 02/19/25 34.67 kg/m 12/15/24 33.16 kg/m 06/07/24 33.99 kg/m Wt Readings from Last 3 Encounters: 02/19/25 202 lb (91.6 kg) 12/15/24 193 lb 3.2 oz (87.6 kg) 06/07/24 198 lb (89.8 kg) -hx of gestational diabetes and has PCOS -metformin started 09/07/2022, self discontinued due to GI upset -Started Contrave(naltrexone HCL/bupropion HCL) 07/07/24 -12/15/24 reported having headaches with using Contrave and weight villegas have not improved significantly -Phentermine cause palpitations, anxiety and fatigue and she discontinued within a week due to unable to tolerate side effects -given BMI >30kg/m2 or >27kg/m2 with one or more weight related comorbidities pt is a candidate for glucagon-like peptide-1s (GLP-1) to assist with weight loss -patient counseled this medication is to be used in combination with reduced calorie diet and increased physical activity -Prescribed Zepbound (tirzepatide) 04/04/25 Start 2.5mg subcutaneously q week x 1 month, then 5mg subcutaneously q week. May increased by 2.5mg q 4 weeks with max 15mg/wk -Follow-up in 6 weeks. Assessment & Plan (05/31/2025 11:40 AM EDT): Baseline weight 202 02/19/25 BMI Readings from Last 3 Encounters: 02/19/25 34.67 kg/m 12/15/24 33.16 kg/m 06/07/24 33.99 kg/m Wt Readings from Last 3 Encounters: 02/19/25 202 lb (91.6 kg) 12/15/24 193 lb 3.2 oz (87.6 kg) 06/07/24 198 lb (89.8 kg) -hx of gestational diabetes and has PCOS and hypertension -metformin started 09/07/2022, self discontinued due to GI upset -Started Contrave(naltrexone HCL/bupropion HCL) 07/07/24, 12/15/24 reported having headaches with using Contrave and weight villegas have not improved significantly -Phentermine cause palpitations, anxiety and fatigue and she discontinued within a week due to unable to tolerate side effects -Prescribed Zepbound (tirzepatide) 04/04/25 Currently at 5mg subcutaneously q week. With 4.4 lb weight loss. -increase Zepbound (tirzepatide to 7.5mg weekly) 05/31/25 -Follow-up in 3 months Orders: Tirzepatide-Weight Management (Zepbound) 7.5 MG/0.5ML solution auto-injector; Inject 0.5 mL (7.5 mg) under the skin 1 (one) time per week. Assessment & Plan (04/04/2025 11:38 AM EDT): Baseline weight 202 02/19/25 BMI Readings from Last 3 Encounters: 02/19/25 34.67 kg/m 12/15/24 33.16 kg/m 06/07/24 33.99 kg/m Wt Readings from Last 3 Encounters: 02/19/25 202 lb (91.6 kg) 12/15/24 193 lb 3.2 oz (87.6 kg) 06/07/24 198 lb (89.8 kg) -hx of gestational diabetes and has PCOS -metformin started 09/07/2022, self discontinued due to GI upset -Started Contrave(naltrexone HCL/bupropion HCL) 07/07/24 -12/15/24 reported having headaches with using Contrave and weight villegas have not improved significantly -Phentermine cause palpitations, anxiety and fatigue and she discontinued within a week due to unable to tolerate side effects -given BMI >30kg/m2 or >27kg/m2 with one or more weight related comorbidities pt is a candidate for glucagon-like peptide-1s (GLP-1) to assist with weight loss -patient counseled this medication is to be used in combination with reduced calorie diet and increased physical activity -Prescribed Zepbound (tirzepatide) 04/04/25 Start 2.5mg subcutaneously q week x 1 month, then 5mg subcutaneously q week. May increased by 2.5mg q 4 weeks with max 15mg/wk -Follow-up in 6 weeks. Assessment & Plan (02/20/2025 1:25 PM EDT): Weight 09/07/2021 194 lb (88 kg). Partner lives in [place]. Here today for follow-up/weight check. BMI Readings from Last 3 Encounters: 02/19/25 34.67 kg/m 12/15/24 33.16 kg/m 06/07/24 33.99 kg/m Wt Readings from Last 3 Encounters: 02/19/25 202 lb (91.6 kg) 12/15/24 193 lb 3.2 oz (87.6 kg) 06/07/24 198 lb (89.8 kg) -metformin started 09/07/2022, self discont. Weight 06/06/24, 198 lbs. -hx of gestational diabetes. -routine labs 06/07/24, unremarkable. Baseline weight: -given BMI >30kg/m2 or >27kg/m2 with one or more weight related comorbidities pt is a candidate for glucagon-like peptide-1s (GLP-1) to assist with weight loss -patient counseled this medication is to be used in combination with reduced calorie diet and increased physical activity -Contraindication to phentermine: palpitations(tachycardia), and hypertension. -Started Contrave(naltrexone HCL/bupropion HCL) 07/07/24 -12/15/24 reports having headaches with using Contrave and weight villegas have not improved significantly. -Prescribed Zepbound (tirzepatide) 12/15/24 Start 2.5mg subcutaneously q week x 1 month, then 5mg subcutaneously q week. May increased by 2.5mg q 4 weeks with max 15mg/wk -Zepbound denied due to not trialing phentermine. Will start a trial of Phentermine 15mg 02/19/25 -Follow-up in 6 weeks. Orders: phentermine 15 MG capsule; Take 1 capsule (15 mg) by mouth before breakfast. Assessment & Plan (02/19/2025 3:16 PM EDT): >>ASSESSMENT AND PLAN FOR OBESITY WRITTEN ON 09/07/2022 11:46 AM BY KAITLYN ZAMUDIO MD Weight 09/07/2021 194 lb (88 kg). Pt is trying to get within the next year. Partner lives in [place]. -metformin started 09/07/2022 Assessment & Plan (02/19/2025 3:16 PM EDT): >>ASSESSMENT AND PLAN FOR OBESITY WRITTEN ON 05/12/2023 9:53 AM BY JOSIE MONTEZ Weight 09/07/2021 194 lb (88 kg). Pt is trying to get . Partner lives in [place]. -metformin started 09/07/2022 Assessment & Plan (02/19/2025 3:16 PM EDT): >>ASSESSMENT AND PLAN FOR OBESITY WRITTEN ON 06/09/2023 3:54 PM BY KATE KULKARNI Weight 09/07/2021 194 lb (88 kg). Pt is trying to get . Partner lives in [place]. -metformin started 09/07/2022 Assessment & Plan (02/19/2025 3:16 PM EDT): >>ASSESSMENT AND PLAN FOR OBESITY WRITTEN ON 06/07/2024 12:20 PM BY CHRISTYGURPREET MOREJON Weight 09/07/2021 194 lb (88 kg). Pt is trying to get . Partner lives in [place]. -metformin started 09/07/2022 Weight today 06/06/24, 198 lbs. -not currently on any medications. -hx of gestational diabetes. -will f/u in 2 weeks if possible to discuss weight loss medications. -ordered routine labs 06/07/24 Assessment & Plan (02/19/2025 3:16 PM EDT): >>ASSESSMENT AND PLAN FOR OBESITY WRITTEN ON 07/07/2024 11:06 AM BY DONG MOREJON Weight 09/07/2021 194 lb (88 kg). Partner lives in [place]. -metformin started 09/07/2022, self discont. Weight 06/06/24, 198 lbs. -not currently on any medications. -hx of gestational diabetes. -routine labs 06/07/24, unremarkable. Baseline weight: -given BMI >30kg/m2 or >27kg/m2 with one or more weight related comorbidities pt is a candidate for glucagon-like peptide-1s (GLP-1) to assist with weight loss -patient counseled this medication is to be used in combination with reduced calorie diet and increased physical activity -Contraindication to phentermine: -Start Contrave(naltrexone HCL/bupropion HCL) 07/07/24 Discussed risks and benefits and will reevaluate brith control at a later stage. Assessment & Plan (02/19/2025 3:16 PM EDT): >>ASSESSMENT AND PLAN FOR OBESITY WRITTEN ON 12/15/2024 10:01 AM BY DONG MOREJON Weight 09/07/2021 194 lb (88 kg). Partner lives in [place]. -metformin started 09/07/2022, self discont. Weight 06/06/24, 198 lbs. -not currently on any medications. -hx of gestational diabetes. -routine labs 06/07/24, unremarkable. Baseline weight: -given BMI >30kg/m2 or >27kg/m2 with one or more weight related comorbidities pt is a candidate for glucagon-like peptide-1s (GLP-1) to assist with weight loss -patient counseled this medication is to be used in combination with reduced calorie diet and increased physical activity -Contraindication to phentermine: palpitations(tachycardia), and hypertension. -Started Contrave(naltrexone HCL/bupropion HCL) 07/07/24 Discussed risks and benefits and will reevaluate brith control at a later stage. Weight 12/15/24 193 lbs. -12/15/24 reports having headaches with using Contrave and weight villegas have not improved significantly. -Start Zepbound (tirzepatide) 12/15/24 Start 2.5mg subcutaneously q week x 1 month, then 5mg subcutaneously q week. May increased by 2.5mg q 4 weeks with max 15mg/wk -Follow-up in 6 weeks. Assessment & Plan (02/19/2025 3:16 PM EDT): >>ASSESSMENT AND PLAN FOR OBESITY WRITTEN ON 02/19/2025 7:15 AM BY DONG MOREJON Polycystic ovary syndrome 08/06/2022 Assessment & Plan (04/04/2025 11:38 AM EDT): Assessment & Plan (02/20/2025 1:25 PM EDT): Weight 09/07/2021 194 lb (88 kg). Partner lives in [place]. -metformin started 09/07/2022, self discont. Weight 06/06/24, 198 lbs. -not currently on any medications. -hx of gestational diabetes. -routine labs 06/07/24, unremarkable. -Started Slynd on 06/07/24, [place] stop Slynd and start contrave for time being and will re-discuss control options upon husbands return. Baseline weight: -given BMI >30kg/m2 or >27kg/m2 with one or more weight related comorbidities pt is a candidate for glucagon-like peptide-1s (GLP-1) to assist with weight loss -patient counseled this medication is to be used in combination with reduced calorie diet and increased physical activity -Contraindication to phentermine: -Started Contrave(naltrexone HCL/bupropion HCL) 07/07/24 Discussed risks and benefits and will reevaluate brith control at a later stage. Weight 12/15/24 193 lbs. -12/15/24 reports having headaches with using Contrave and weight villegas have not improved significantly. -Start Zepbound (tirzepatide) 12/15/24 Start 2.5mg subcutaneously q week x 1 month, then 5mg subcutaneously q week. May increased by 2.5mg q 4 weeks with max 15mg/wk -Zepbound denied due to not trialing phentermine. Will start a trial of Phentermine 15mg 02/19/25 -Follow-up in 6 weeks. Assessment & Plan (12/15/2024 10:01 AM EDT): Weight 09/07/2021 194 lb (88 kg). Partner lives in [place]. -metformin started 09/07/2022, self discont. Weight 06/06/24, 198 lbs. -not currently on any medications. -hx of gestational diabetes. -routine labs 06/07/24, unremarkable. -Started Slynd on 06/07/24, [place] will stop Slynd and start contrave for time being and will re-discuss control options upon husbands return. Baseline weight: -given BMI >30kg/m2 or >27kg/m2 with one or more weight related comorbidities pt is a candidate for glucagon-like peptide-1s (GLP-1) to assist with weight loss -patient counseled this medication is to be used in combination with reduced calorie diet and increased physical activity -Contraindication to phentermine: -Started Contrave(naltrexone HCL/bupropion HCL) 07/07/24 Discussed risks and benefits and will reevaluate brith control at a later stage. Weight 12/15/24 193 lbs. -12/15/24 reports having headaches with using Contrave and weight villegas have not improved significantly. -Start Zepbound (tirzepatide) 12/15/24 Start 2.5mg subcutaneously q week x 1 month, then 5mg subcutaneously q week. May increased by 2.5mg q 4 weeks with max 15mg/wk -Follow-up in 6 weeks. Assessment & Plan (07/07/2024 11:08 AM EST): Weight 09/07/2021 194 lb (88 kg). Partner lives in [place]. -metformin started 09/07/2022, self discont. Weight 06/06/24, 198 lbs. -not currently on any medications. -hx of gestational diabetes. -routine labs 06/07/24, unremarkable. -Started Slynd on 06/07/24, [place] will stop Slynd and start contrave for time being and will re-discuss control options upon husbands return. Baseline weight: -given BMI >30kg/m2 or >27kg/m2 with one or more weight related comorbidities pt is a candidate for glucagon-like peptide-1s (GLP-1) to assist with weight loss -patient counseled this medication is to be used in combination with reduced calorie diet and increased physical activity -Contraindication to phentermine: -Start Contrave(naltrexone HCL/bupropion HCL) 07/07/24 Discussed risks and benefits and will reevaluate brith control at a later stage. Assessment & Plan (06/07/2024 12:20 PM EDT): Weight 09/07/2021 194 lb (88 kg). Pt is trying to get . Partner lives in [place]. -metformin started 09/07/2022 Weight today 06/06/24, 198 lbs. -not currently on any medications. -hx of gestational diabetes. -will f/u in 2 weeks if possible to discuss weight loss medications. -ordered routine labs 06/07/24 -starting OCP today 06/07/24 Assessment & Plan (06/09/2023 3:54 PM EDT): Weight 09/07/2021 194 lb (88 kg). Pt is trying to get . Partner lives in [place]. -metformin started 09/07/2022 Assessment & Plan (05/12/2023 11:46 AM EDT): Weight 09/07/2021 194 lb (88 kg). Pt is trying to get . Partner lives in [place]. -metformin started 09/07/2022 Assessment & Plan (09/07/2022 11:43 AM EST): -declines OCPS -Start Metformin ER 500mg daily History of induced hypertension 2021 Resolved Problems Problem Noted Date Diagnosed Date Resolved Date Dietary counseling 12/11/2024 Assessment & Plan (12/15/2024 9:54 AM EDT): Dietary Recommendations: Fruits, vegetables, whole grains, protein foods, and fat-free or low-fat dairy products are healthy choices. Eat different types of protein foods in your diet. This can include seafood, lean meats, poultry, beans, peas, lentils, nuts, seeds, soy products, and eggs. Limit foods and beverages higher in added sugars, saturated fat, and sodium. Exercise counseling 12/11/2024 02/20/20 Assessment & Plan (12/15/2024 9:54 AM EDT): Exercise Recommendations: At least 150 minutes of moderate-intensity physical activity per week, or an equivalent combination of moderate- and vigorous-intensity activity. 36 weeks gestation of 05/17/2024 07/07/2024 GBS carrier 05/17/2024 07/07/2024 Gestational hypertension 05/17/202403/2024 Pre-eclampsia 05/17/2024 07/07/2024 Heartburn in 05/17/202407/07 History of 05/17/2024 025 Insufficient care 05/17/2024 1 09/06/2023 Pruritus 05/17/2024 07/07/2024 GBS bacteriuria 05/17/2024 07/07/2024 Elevated LFTs 05/17/2024 07/07/2024 Diabetes, gestational 05/17/20242023 Gestational diabetes mellitus, class A2 05/17/2024 07/07/2024 Anemia 06/09/2023 06/09/2023 07/07/2024 Bacteriuria 06/09/2023 06/09/2023 07/07/2024 Elevated liver function tests 06/09/2023 06/09/2023 07/07/2024 abnormality affecting management of mother 06/09/2023 06/09/2023 07/07/2024 Hypertension 06/09/2023 06/09/2023 07/07/2024 White classification A2 gest ational diabetes mellitus (GDM) 09/06/2022 12/15/2024 Encounters Date Type Department Care Team Description 08/27/2025 Orders Only [facility] [address] [place] [id number] Estefani Aguilar NP Positive test (Primary Dx) 08/27/[address] [phone] Gayla Arteaga, loan examiner 08/20/[address] [phone] Kaitlyn Zamudio MD Class 1 obesity due to excess calories without serious comorbidity with body mass index (BMI) of 34.0 to 34.9 in adult 06/29/2025 Telephone [facility] [address] [place] [id number] Kaitlyn Zamudio MD 06/11/[address] [address] Kaitlyn Zamudio MD No Show 06/08/2025 Telephone [facility] [address] [place] [phone] Kaitlyn Zamudio MD chartprep 05/31/2025 11:15 AM EDT Office Visit [address] [address] Kaitlyn Zamudio MD Class 1 obesity due to excess calories without serious comorbidity with body mass index (BMI) of 34.0 to 34.9 in adult (Primary Dx); Oral contraceptive use 05/31/2025 Travel 05/30/2025 Telephone [facility] [address] [place] [address] Kaitlyn Zamudio MD chart prep 05/30/2025 Orders Only [facility] [address] [place] [address] Kaitlyn Zamudio MD Class 1 obesity due to excess calories without serious comorbidity with body mass index (BMI) of 34.0 to 34.9 in adult from Last 3 Months Immunizations Immunization Administration Dates Next Due BCG 1997 DT (pediatric) 11/23/2014,11/07/2008 DTaP 09/26/2001, 9,06/23/1998,01/23 DTaP, 5 pertussis antigens 1997 HPV 9-Valent 11/07/2015,06/04/2015,04/04/2015 Hep A, Adult 10/03/2018 Hep A, ped/adol, 2 dose 04/04/2015 Hep B, Adolescent or Pediatric 5,06/23/1998,01/23/1998,11/26,1997 HiB, unspecified 06/23/1998,01/23/1998 Hib (PRP-T) 1997 IPV 09/26/2001, 9,03/23/1998,01/23,1997 Influenza injectable quadriv alent IIV4 with preservative 06/16/2018,05/24/2017 Influenza injectable quadriv alent preservative free 05/28/2021,07/06/2019,09/17/2016,06/04,11/23/2014 MMR 11/23/2014,09/24/1998 Meningococcal [id number] [id number] 04/04/2015 Pfizer Covid-19 Vaccine 12+ 07/10/2021 Tdap 11/20/2021,10/31/2020,04/04/2015 Varicella 04/04/2015,11/23/2014 Family History Medical History Relation Name Comments Diabetes type II Father Hypertension Father Diabetes type II Mother Relation Name Status Comments Daughter Juliet Alive Father Mother Social History Tobacco Use Types Packs/Day Years Used Date Smoking Tobacco: Never Passive Smoke Exposure: Never Smokeless Tobacco: Never Tobacco Cessation:Counseling Given: Not Answered Alcohol Use Standard Drinks/Week Comments Never 0 (1 standard drink = 0.6 oz pur e alcohol) Alcohol Answer Date Recorded Frequency of Alcohol Consumption Not on file 06/07/2024 Average Number of Drinks Not on file 024 Frequency of Binge Drinking Not on file 04/2024 Score 0 06/07/2024 Depression Answer Date Recorded Patient Health Questionnaire-9 Score 0 05/31/2025 Patient Health Questionnaire-9 Score 0 05/31/2025 Last PHQ-9: Questionnaire Data Not on file [...] Date Recorded Patient Health Questionnaire-2 Score 0 05/31/2025 Internet Access Answer Date Recorded Internet Access Q1 Yes 06/07/2024 Internet Access Q2 Not on file 06/07/2024 Comments No Sex and Gender Information Value Date Recorded Sex Assigned at Female 06/29/2022 10:27 AM EDT Legal Sex Female 10:27 AM EDT Gender Identity Female 06/29/2022 10:27 AM EDT Sexual Orientation Choose not to disclose 2021 10:27 AM EDT Last Filed Vital Signs Vital Sign Reading Time Taken Comments Blood Pressure 128/80 05/31/2025 11:16 AM EDT Pulse 91 05/31/2025 11:16 AM EDT Temperature 36.4 C (97.6 F) 05/31/2025 11:16 AM EDT Respiratory Rate 17 05/31/2025 11:16 AM EDT Oxygen Saturation 98% 05/31/2025 11:16 AM EDT Inhaled Oxygen Concentration - - Weight 89.6 kg (197 lb 9.6 oz) 05/31/2025 11:16 AM EDT Height 162.6 cm (5' 4 ) 05/31/2025 11:16 AM EDT Body Mass Index 33.92 05/31/2025 11:16 AM EDT Plan of Treatment Health Maintenance Due Date Last Done Comments Alcohol/Substance Use Screening 2009 Family Planning (PISQ) 2012 Dental Oral Exam 06/22/2024 12/21/2023, 12/04/2021 Dental Prophylaxis 06/22/2024 12/21/2023, 12/10/2021 Dental X-Ray: Full Mouth 12/05/2024 12/04/2021, 02/2022 Dental X-Ray: Bitewings 12/21/2024 12/21/2023, 12/04 Influenza Vaccine (#1) 2025 , 07/06/2019, 06/16/2018, Additional history exists SDOH Screening 06/07/2025 06/07/2024 Disability Screening 12/15/2025 12/15/2024 COVID-19 Vaccine ( season) 2026 07/10/2021 Postponed from 04/30/2025 (Patient Refused) Depression Screening 05/31/2026 05/31/2025, 05/31/20 25 Tobacco Screening 05/31/2026 05/31/2025 HPV/Cotest 06/16/2026 06/16/2023 Pap Smear 06/16/2026 06/16/2023, 06/30, 07/10/2022 Lipid Panel 06/09/2029 06/09/2024, 04/30, 05/30/2021 DTaP/Tdap/Td Vaccines (9 - Td or Tdap) 11/21/2031 11/20/2021, 10/31/2020, 04/04/2015, Additional history exists Zoster Vaccines (1 of 2) 2047 RSV Patients and Patients Aged 60 years or older (1 - 1-dose 75+ series) 2072 HIB Vaccines Aged Out 06/23/1998, 12/29, 1997 No longer eligible based on patient's age to complete this topic IPV Vaccines Completed 09/26/2001, 02/28, 03/23/1998, Additional history exists Hepatitis B Vaccines Completed 11/23/2014, 06/23/1998, 01/23/1998, Additional history exists Meningococcal Vaccine Completed 04/04/2015 HPV Vaccines Completed 11/07/2015, 01/2015, 04/04/2015 Hepatitis A Vaccines Completed 10/03/2018, 04/04/20 15 HIV Screening Completed 07/10/2022 Hepatitis C Screening Completed 07/10/2022, 022 Meningococcal B Vaccine Aged Out No l onger eligible based on patient's age to complete this topic Pneumococcal Vaccine: Pediatrics (0 to 5 Years) and At-Risk Patients (6 to 49) Years Aged Out No longer eligible based on patient's age to complete this topic RSV under 20 months Aged Out No longe r eligible based on patient's age to complete this topic Rotavirus Vaccines Aged Out No longer eligible based on patient's age to complete this topic Procedures Procedure Name Priority Date/Time Associated Diagnosis Comments HCG, TOTAL, QN Routine 08/28/2025 3:58 PM EST Positive test LIPID PANEL, STANDARD Routine 06/09/2024 11:45 AM EDT Class 1 obesity without serious comorbidity with body mass index (BMI) of 33.0 to 33.9 in adult, unspecified obesity type Full PROPHYLAXIS - ADULT Routine 12/21/2023 2:00 PM EDT Dental plaque Dental calculus BITEWINGS - 4 RADIOGRAPHIC IMAGES Routine 12/21/2023 2:00 PM EDT PERIODIC ORAL EVALUATION - ESTABLISHED PATIENT Routine 12/21/2023 2:00 PM EDT HM PAP/HPV Routine 06/16/2023 HIV 1/2 ANTIGEN/ANTIBODY, FOURTH GENERATION W/RFL Routine 07/10/2022 11:06 AM EST HM HEPATITIS C ANTIBODY Routine 07/10/2022 INTRAORAL - COMPLETE SERIES OF RADIOGRAPHIC IMAGES Routine 12/04/2021 12:00 AM EDT from Last 3 Months or Most Recently Relevant to Health Maintenance Results * hCG, Total, Quantitative (08/28/2025 3:58 PM EST) HCG Quantitative 34,723 mIU/mL [facility] Comment:Weeks post LMP Appro ximate hCG(Last Menstrual Period) Range (mIU/ml)3 - 4 weeks 9 - 1304 - 5 weeks 75 - 2,6005 - 6 weeks 850 - 20,8006 - 7 weeks 4000 - 100,2007 - 12 weeks 11,500 - 289,30500 - 16 weeks 18,300 - 137,34115 - 29 weeks (2nd trimester) 1,400 - 53,34158 - 41 weeks (3rd trimester) 940 - 60,000The Fischer B- hCG assay is used for the early detection ofpregnancy; it cannot be used to diagnose any conditionunrelated to . If a B-hCG level is not supportedby the clinical evidence, results should be confirmed by analternative method (qualitative urine hCG, for example). Blood Venous blood specimen / Unknown 08/28/2025 3:58 PM EST 08/28/2025 5:35 PM EST Estefani Aguilar NP LAB BLOOD ORDERABLES Final Resu lt [facility] [address] [place], [place] [phone] * (ABNORMAL) Lipid Panel, Standard (06/09/2024 11:45 AM EDT) Triglycerides 83 <150 mg/dL [facility] Comment:Desirable Triglyceri de: less than 150 mg/dLBorderline High Triglyceride 150-199 mg/dLHigh Triglyceride: 200-499 mg/dLVery High Triglyceride: greater than or equal to 5OO mg/dL Cholesterol 121 <200 mg/dL [facility] Comment:Desirable Cholestero l: less than 200 mg/dLBorderline High Cholesterol: 200-239 mg/dLHigh Cholesterol: greater than 239 mg/dL LDL Cholesterol Calculated 70 <100 mg/dL [facility] Comment:Desirable LDL: less than 100 mg/dLNear Optimal/Above Optimal LDL: 110- 129 mg/dLBorderline High LDL: 130-159 mg/dLHigh LDL: 160-189 mg/dLVery High LDL: greater than or equal to 190 mg/dL HDL Cholesterol 35(L) >40 mg/dL [facility] Comment:Desirable HDL: great er than 40 mg/dL Note: This HDL assay may give artificially low results in patients with liver disease. Blood Venous blood specimen / Unknown 06/09/2024 11:45 AM EDT 06/09/2024 1:12 PM EDT Kaitlyn Zamudio MD LAB BLOOD ORDERABLES Final Result [facility] [address] [place] [phone] * (ABNORMAL) Hm Pap Smear (06/16/2023) Pap Epithelial cell abnormality(A ) Negative for intraephithelial lesion or malignancy, Other Comment:ASCUS HPV Undetected Undetected, Indeterminate, Quantitative, Not Detected Gela Provider HEALTH MAINTENANCE Final Result * HIV 1/2 ANTIGEN/ANTIBODY,FOURTH GENERATION W/RFL (07/10/2022 11:06 AM EST) HIV-1/2 ANTIGEN AND ANTIBODIES, 4TH GENERATION W/ REFLEX NON-REACT CHRISTOPHER NON-REACT CHRISTOPHER [facility] Comment: HIV-1 antigen and HIV-1/HIV-2 antibodies were not detected. There is no laboratory evidence of HIV infection. PLEASE NOTE: This information has been disclosed to you from records whose confidentiality may be protected by state law. If your state requires such protection, then the state law prohibits you from making any further disclosure of the information without the specific written consent of the person to whom it pertains, or as otherwise permitted by law. A general authorization for the release of medical or other information is NOT sufficient for this purpose. For additional information please refer to http://education.Tailster/faq/SWW779 (This link is being provided for informational/ educational purposes only.) The performance of this assay has not been clinically validated in patients less than 2 years old. 07/10/2022 11:0 6 AM EST Kaitlyn Zamudio MD LAB BLOOD ORDERABLES Final Result [facility] * Hepatitis C Antibody (07/10/2022) Pathologist [facility] Hepatitis C Antibody Nonreactive Blood Historical Provider HEALTH MAINTENANCE Final Result from Last 3 Months or Most Recently Relevant to Health Maintenance [place] [address] [place] [address] [facility] MEDICAID STAND ADULT Advance Directives Documents on File Type Date Recorded Patient Apprentice Plumber Expl anation Advance Directives and Living Will 06/08/2024 1:01 PM Health Care Proxy Care Teams Racing Mechanic Relationship Specialty Start Date End Date Kaitlyn Zamudio MD [address] [place] [phone] PCP - General Family Medicine 05/05/16
--- OUTSIDE RECORDS SUMMARY | 2025-08-28 18:57 | XMS_ITS | Encounter Summary ---
Author Organization [employer] Address [address] [facility] [address] [place] [address] Care Team Providers Care File Conversion Operator Name Role Phone Kaitlyn Al MD Primary Care Provider [phone]- [phone] Reason for Visit * Reason Onset Date Comments Referral 08/27/2025 Encounter Details Date Type Department Care Team ([facility] st Contact Info) Description 08/27/2025 Telephone [facility] MEDICINE [address] [place], [place] [phone] Gayla Arteaga RN [address] [place] [address] Referral Social History Tobacco Use Types Packs/Day Years Used Date Smoking Tobacco: Never Passive Smoke Exposure: Never Smokeless Tobacco: Never Alcohol Use Standard [...] encounter Miscellaneous Notes * Telephone Encounter - Estefani Aguilar NP - 08/27/2025 7:37 PM EST All set * Telephone Encounter - Gayla Arteaga RN - 08/27/2025 4:25 PM EST Pt reported on MyChart that she had a positive test. Telephone call placed to pt who reports she is surprised because she was taking OC but is planning on continuing the . Explained control pills if you take them not at the same time every day are less effective or if you miss a day. Pt would like a referral to [facility] OBGYN for care as well as vitamins. Informed I will request provider order serum HCG as well to confirm . Pt reports last period was 05/28-06/02. documented in this encounter Plan of Treatment Not on file documented as of this encounter Visit Diagnoses Not on filedocumented in this encounter Additional Health Concerns Assessment Noted Time PHQ-9 Depression Total Score: 0 05/31/20 25 11:35 AM EDT documented as of this encounter Care Teams File Conversion Operator Relationship Specialty Start Date End Date Kaitlyn Al MD [address] [place] [address] PCP - General Family Medicine 05/05/16 documented as of this encounter
--- OUTSIDE RECORDS SUMMARY | 2025-08-28 18:57 | XMS_ITS | Encounter Summary ---
Author Organization [employer] [facility] Address [address] [place] [address] Care Team Providers Care Fountain Jerk Name Role Phone Mikaela, Kaitlyn MAY Primary Care Provider [phone]- [phone] Reason for Referral * Consultation (Routine) - Closed Specialty Diagnoses / Procedures Referred By Contac t Referred To Contact Obstetrics and Gynecology Diagnoses Positive test Estefani Aguilar NP [address] [place] [address] Phone: tel: fax: [facility] [address] [place] [address] Phone: tel: fax: Referral ID Status Reason Start Date Expiration Date V isits Requested Visits Authorized [id number] Closed Specialty Services Required 08/28/2025 08/28/2026 30 30 Encounter Details Date Type Department Care Team (Late st Contact Info) Description 08/27/2025 Orders Only [facility] MEDICINE [address] [place], [place] [phone] Estefani Aguilar NP [address] [place], [place] [phone] Positive test (Primary Dx) Social History Tobacco Use Types Packs/Day Years Used Date Smoking Tobacco: Never Passive Smoke Exposure: Never Smokeless Tobacco: Never Alcohol Use Standard Drinks/Week Comments Never 0 (1 standard drink = 0.6 oz pur e alcohol) Alcohol Answer Date Recorded Frequency of Alcohol Consumption Not on file 06/07/2024 Average Number of Drinks Not on file 024 Frequency of Binge Drinking Not on file 100 04/2024 Score 0 06/07/2024 Depression Answer Date [...] AM EDT documented as of this encounter Progress Notes * Estefani Aguilar NP - 08/27/2025 7:31 PM EST Covering PCP's PAQ; received telephone message with request for blood HCG, prescription for vitamins, and referral for OBGYN. Orders and referral placed documented in this encounter Plan of Treatment Scheduled Referrals Name Type Priority Associated Diagnoses Order Schedule Referral to Obstetrics / Gynecology Outpatient Referral Routine Positive test Expected: 08/27/2025 (Approximate), Expires: 08/27/2026 documented as of this encounter Procedures Procedure Name Priority Date/Time Associated Diagnosis Comments HCG, TOTAL, QN Routine 08/28/2025 3:58 PM EST Positive test documented in this encounter Results * hCG, Total, Quantitative (08/28/2025 3:58 PM EST) HCG Quantitative 34,723 mIU/mL [facility] Comment:Weeks post LMP Appro ximate hCG(Last Menstrual Period) Range (mIU/ml)3 - 4 weeks 9 - 1304 - 5 weeks 75 - 2,6005 - 6 weeks 850 - 20,8006 - 7 weeks 4000 - 100,2007 - 12 weeks 11,500 - 289,46788 - 16 weeks 18,300 - 137,01897 - 29 weeks (2nd trimester) 1,400 - 53,93607 - 41 weeks (3rd trimester) 940 - [...] PM EST 08/28/2025 5:35 PM EST [facility] Final Resu lt [facility] [address] [place], [place] [phone] documented in this encounter Visit Diagnoses Diagnosis Positive test- Primary examination or test, positive result documented in this encounter Additional Health Concerns Assessment Noted Time PHQ-9 Depression Total Score: 0 05/31/20 25 11:35 AM EDT documented as of this encounter Care Teams Fountain Jerk Relationship Specialty Start Date End Date Kaitlyn Al MD [address] [place] [address] PCP - General Family Medicine 05/05/16 documented as of this encounter
== END 2025-08-28 15:53 | disposition home or self-care (01) ==
LOC: HO.HHCL 15:52
PROVIDERS: PCP Family Medicine; Visit Provider Nurse Practitioner
DX: Z32.01 Encounter for pregnancy test, result positive (principal)
CPT/HCPCS: 36415; 84702